=== PATIENT | female | born 1960 | race African-American/Black ===

== ENCOUNTER 2024-08-03 20:39 | Emergency (ER) | payer SELFPAY ==
--- NOTE | 2024-08-03 | ECG_ITS ---
Test Reason : WEAKNESS Blood Pressure : */* mmHG Vent. Rate : 46 BPM Atrial Rate : 46 BPM P-R Int : 192 ms QRS Dur : 172 ms QT Int : 668 ms P-R-T Axes : 48 -67 95 degrees QTcB Int : 584 ms Poor data quality Sinus bradycardia with Premature supraventricular complexes Right bundle branch block Left anterior fascicular block Bifascicular block Left ventricular hypertrophy ( R in aVL , Romhilt-Keating ) Cannot rule out Septal infarct , age undetermined Abnormal ECG No previous ECGs available Referred By: Generic ED Physician Electronically Signed By: JONNY BHATIA MD
--- NOTE | ~2024-08-03 | CT_ITS ---
CLINICAL HISTORY: fall with headstrike collar CT cervical spine without contrast Comparison: None Findings: Normal vertebral body alignment. Moderate degenerative changes of the cervical spine. No acute fractures or dislocations. Mucous retention cyst in the right sphenoid sinus. Soft tissues of the neck are normal. Left mastoid effusion. IMPRESSION: No acute findings. This document has been electronically signed by: Reggie Lopez MD on 08/04/2024 01:54:03
--- NOTE | ~2024-08-03 | CT_ITS ---
CLINICAL HISTORY: fall with headstrike CT head without contrast Comparison: None Findings: Moderate ill-defined focus of decreased attenuation identified of the left temporal lobe. No acute intracranial hemorrhage. No midline shift. No hydrocephalus. There is generalized cerebral volume loss. Small mucous retention cysts versus polyps identified at the right frontal and right sphenoid sinuses. The bilateral mastoid air cells appear clear. No acute skull fracture. Impression: 1. Moderate ill-defined focus of low attenuation present at the left temporal lobe. Differential considerations include age-indeterminate ischemia, possibly acute or subacute in etiology or edema related to an underlying mass. Recommend MRI examination of the brain with and without contrast for further evaluation. No acute intracranial hemorrhage. No midline shift. This document has been electronically signed by: Jr Colorado MD on 08/04/2024 02:13:42
--- NOTE | ~2024-08-03 | CT_ITS ---
CLINICAL HISTORY: Left temporal mass CVA CT angiography head and neck with contrast. 3D Postprocessing. Comparison: None Findings: Aortic arch and cervical great vessels are patent. Mild calcific atherosclerotic changes are seen in the carotid bulbs bilaterally without significant stenosis. Intracranial arteries are patent. No aneurysm, dissection, or occlusion. The examination demonstrates a brightly enhancing extra-axial mass in the left middle cranial fossa Passing through and expanding the foramen ovale. The mass measures 3.7 cm in cephalocaudal dimension by 2.5 cm in width and up to 2.1 cm in AP dimension. Its location suggests a likely schwannoma. The visualized thyroid gland is unremarkable. No cervical mass or fluid collection. Lung apices clear. No acute fracture. There is significant surrounding edema. IMPRESSION: 1. Brightly enhancing circumscribed extra-axial mass passes through and expands the foramen ovale likely representing a schwannoma. There is significant surrounding edema. Please correlate with MRI. 2. Patent head and neck CTA. This document has been electronically signed by: Anton Spear MD on 08/04/2024 05:48:46
[2024-08-03 20:49] VITALS: BP 111/71; PULSE 64; O2SAT 100
[2024-08-03 20:53] VITALS: BP 147/98; PULSE 58; RESP 18; O2SAT 98; BMI 27.4
--- NOTE | 2024-08-03 21:53 | PC.NURSE ---
Addendum entered by Mely Wayne RN 08/04/24 05:52: unable to obtain PO temp, rectal temp, and got an axillary temp of 87.8. placed pt on mariana hugger. Original Note: pt came in for a fall via EMS, during triage pt endorsing SI, security called to have belongings secured and searched, unable to exchange trouble shooter due to pt having C collar on and no imaging.
[2024-08-03 22:00] VITALS: BP 129/71; PULSE 53; RESP 18; O2SAT 98
[2024-08-03 22:59] LABS: MANUAL DIFF FLAG NO
[2024-08-03 23:01] LABS: Basophils Percent Auto 0.3 % (0-2); Eosinophils Percent Auto 0.3 % (0-4); Hematocrit 36.2 % (37.0-47.0); Hemoglobin 12.5 g/dl (12.0-16.0); Imm Gran Abs Auto 0.01 X10*3/uL (0.00-0.03); Imm Gran Pct Auto 0.3 % (0.0-0.4); Lymphocytes Absolute Auto 1.1 X10*3/uL (1.2-4.9); Lymphocytes Percent Auto 29.9 % (20-40); Mean Corpuscular HGB Conc 34.5 g/dl (31.0-35.0); Mean Corpuscular Hemoglobin 31.5 pg (27.0-33.0); Mean Corpuscular Volume 91.2 fL (80.0-98.0); Mean Platelet Volume 10.1 fL (9.4-12.3); Monocytes Absolute Auto 0.2 X10*3/uL (0.1-1.2); Monocytes Percent Auto 5.6 % (2-11); Neutrophils Absolute Auto 2.3 x10*3/uL (2.0-8.3); Neutrophils Percent Auto 63.6 % (45-73); Platelet Count 257 X10*3/uL (160-400); Red Blood Count 3.97 X10*6/uL (4.20-5.50); Red Cell Distribution Width 14.4 % (11.0-16.0); White Blood Count 3.5 X10*3/uL (4.8-10.8)
[2024-08-03 23:21] LABS: Troponin-I High Sensitivity 2.8 ng/L (<3.5-17.0)
[2024-08-03 23:22] LABS: Alanine Aminotransferase 53 U/L (0-31); Albumin Level 4.2 g/dL (3.5-5.0); Alkaline Phosphatase 76 U/L (39-117); Anion Gap 19 (12-20); Aspartate Amino Transferase 127 U/L (5-31); Bilirubin Total 0.3 mg/dL (0.0-1.0); Blood Urea Nitrogen 14 mg/dL (9-16); Calcium 9.6 mg/dL (8.4-10.2); Carbon Dioxide 28 mmol/L (22-29); Chloride 97 mmol/L (96-108); Creatinine Clr Calc Pharmacy 80.6; Estimated Glomerular Filt Rate > 60; Ethanol < 10 mg/dL; Glucose Fasting 234 mg/dL (60-99); Potassium 3.2 mmol/L (3.3-5.1); Sodium 141 mmol/L (135-145); Total Protein 8.5 g/dL (6.5-8.0)
[2024-08-03 23:24] LABS: Acetaminophen LAB < 3 mcg/mL (<30); Salicylate < 5.0 mg/dL (15-30)
[2024-08-03 23:35] LABS: TSH reflex Free T4 26.74 uIU/mL (0.32-4.0)
[2024-08-04] VITALS (14 sets, daily range): BP systolic 73–110; BP diastolic 45–80; PULSE 51–62; RESP 12–16; TEMP 31–34.1; O2SAT 94–100
[2024-08-04 01:27] LABS: Free T4 (Free Thyroxine) < 0.42 ng/dL (0.71-1.85)
--- NOTE | 2024-08-04 02:58 | ED_ITS ---
HPI - Fall General Chief Complaint: Fall Stated Complaint: pt is deaf, dizzy, weak, took fall? c collered Time Seen by Provider: 08/04/24 02:22 Source: EMS Mode of arrival: EMS Limitations: other (ASL) History of Present Illness ED Provider: HPI Narrative: Patient is deaf and mute apparently comes here as she slipped and fell on snow fell backwards and hitting her back to the ground denies any significant headache no nausea no vomiting no loss of consciousness patient has denied suicidal ideation or unsafe to be home says that her left upper extremity is weak which happened after the fall because of pain Related Data Allergies Allergy/AdvReac Type Severity Reaction Status Date / Time No Known Allergies Allergy Verified 08/03/24 21:41 Review of Systems 2 Review of Systems: Yes all other systems are reviewed and are negative [facility] Social History Social History Smoked in Last 30 Days: Yes Use of substances other than those prescribed or required for medical reasons: No Advance Directives: No Do you have a plan to hurt others: No Plan Physical Exam 2 Vital Signs: Vital Signs: Last Vital Signs Temp 87.8 F L 08/04/24 05:19 Pulse 51 08/04/24 05:19 Resp 12 08/04/24 05:19 BP 93/61 08/04/24 06:45 Pulse Ox 97 08/04/24 05:19 O2 Del Method Room Air 08/04/24 05:19 BMI result Body Mass Index 27.4 Appearance: Alert. . No acute distress. Patient is deaf Eyes: PERRLA, No Nystagmus ENT: Pharynx normal. Oral Mucosa moist Neck: Normal inspection. Neck supple. CVS: Normal heart rate and rhythm. Pulses normal. Respiratory: No respiratory distress. Equal air entry bilateral, no wheezing/rales/rhonchi Abdomen: Soft and nontender. Bowel sounds are present, no mass palpable, no CVA tenderness Skin: Skin warm and dry. Normal skin color. Normal skin turgor. Extremities: No lower extremity edema. No calf tenderness Neuro: Oriented X 3. Left upper extremity weakness 2/5and lower extremity normal 5/5 right side No cerebellar signs , cranial nerves II-XII intact Medications Administered Discontinued Medications Generic Name Dose Route Start Last Admin Trade Name Freq PRN Reason Stop Dose Admin Al Hydroxide/Mg Hydroxide 30 ml 08/04/24 02:58 08/04/24 03:15 Magnesium Hydrox/Alum Hydrox 30 Ml Oral.Susp PO 08/04/24 02:59 30 ml ONCE ONE Administration Iohexol 70 ml 08/04/24 04:05 08/04/24 04:05 Iohexol 350 Mg/Ml 100 Ml Infus..Btl IV 08/04/24 04:06 70 ml ONCE ONE Administration Medical Decision Making Medical Decision Making [place] Narrative: Patient is deaf came here after the fall on the ice unable to get up noted to be hypothermic 87.8 at 05:00 started on Crhis Hugger and will start on warm fluids and po fluids Patient's CT scan showed b/l enhancing exrtra axial mass passes through and expands the foramen ovale Also noted to have patient has significant hypothyroidism not in coma at this time will give her levothyroxine IV was already given Decadron IV Patient is signed out Dr. Mays for disposition [facility] called [facility] [place] Lab Attestation statement: I reviewed the patient's lab results. 08/03/24 22:52 08/03/24 22:52 Labs: Lab Results 08/03/24 08/04/24 Range/Units 22:52 06:48 WBC 3.5 L (4.8-10.8) X10*3/uL RBC 3.97 L (4.20-5.50) X10*6/uL Hgb 12.5 (12.0-16.0) g/dl Hct 36.2 L (37.0-47.0) % MCV 91.2 (80.0-98.0) fL MCH 31.5 (27.0-33.0) pg MCHC 34.5 (31.0-35.0) g/dl RDW 14.4 (11.0-16.0) % Plt Count 257 (160-400) X10*3/uL MPV 10.1 (9.4-12.3) fL Immature Gran % (Auto) 0.3 (0.0-0.4) % Neut % (Auto) 63.6 (45-73) % Lymph % (Auto) 29.9 (20-40) % Gem % (Auto) 5.6 (2-11) % Eos % (Auto) 0.3 (0-4) % Baso % (Auto) 0.3 (0-2) % Lymph # (Auto) 1.1 L (1.2-4.9) X10*3/uL Gem # (Auto) 0.2 (0.1-1.2) X10*3/uL Eos # (Auto) 0.0 (0.0-0.4) X10*3/uL Baso # (Auto) 0.0 (0.0-0.2) X10*3/uL Abs Immat Gran (auto) 0.01 (0.00-0.03) X10*3/uL Absolute Neuts (auto) 2.3 (2.0-8.3) x10*3/uL Absolute Nucleated RBC 0.000 (0.0-0.012) X10*3/uL Nucleated RBC % (auto) 0.0 (0.0-0.2) /100WBC Sodium 141 (135-145) mmol/L Potassium 3.2 L (3.3-5.1) mmol/L Chloride 97 (96-108) mmol/L Carbon Dioxide 28 (22-29) mmol/L Anion Gap 19 (12-20) BUN 14 (9-16) mg/dL Creatinine 0.78 (0.5-1.4) mg/dL Estim Creat Clear Calc 80.6 Estimated GFR > 60 Fasting Glucose 234 H (60-99) mg/dL Calcium 9.6 (8.4-10.2) mg/dL Total Bilirubin 0.3 (0.0-1.0) mg/dL AST 127 H (5-31) U/L ALT 53 H (0-31) U/L Alkaline Phosphatase 76 (39-117) U/L Troponin I High Sens 2.8 (<3.5-17.0) ng/L Total Protein 8.5 H (6.5-8.0) g/dL Albumin 4.2 (3.5-5.0) g/dL TSH 26.74 H (0.32-4.0) uIU/mL Free T4 < 0.42 L (0.71-1.85) ng/dL Urine Color Yellow Urine Appearance Hazy Urine pH 6.0 (5.0-9.0) Ur Specific [place] >= 1.030 H (1.005-1.025) Urine Protein 100 (2+) H (Neg-Trace) mg/dL Urine Glucose (UA) 100 H (Negative) mg/dL Urine Ketones Negative (Negative) mg/dL Urine Blood Small (1+) H (Negative) Urine Nitrite Negative (Negative) Ur Leukocyte Esterase Negative (Negative) Urine RBC 0-2 (0-2) /HPF Urine WBC 0-5 (0-5) /HPF Ur Squamous Epith Cells 0-2 (0-2) /HPF Urine Bacteria 4+ (None Seen) Hyaline Casts 11-20 (0-2) /LPF Granular Casts Present Salicylates < 5.0 L (15-30) mg/dL Urine Opiates Screen Not Detected (Not Detect) Ur Buprenorphine Scrn Not Detected (Not Detect) ng/mL Ur Oxycodone Screen Not Detected (Not Detect) ng/mL Urine Methadone Screen Not Detected (Not Detect) ng/mL Urine Fentanyl Screen Not Detected (Not Detect) Acetaminophen < 3 (<30) mcg/mL Ur Barbiturates Screen Not Detected (Not Detect) Ur Phencyclidine Scrn Not Detected (Not Detect) Ur Amphetamines Screen Not Detected (Not Detect) U Benzodiazepines Scrn Not Detected (Not Detect) Urine Cocaine Screen Not Detected (Not Detect) U Marijuana (THC) Screen Not Detected (Not Detect) Ethyl Alcohol < 10 mg/dL Independent Interpretation I performed an independent interpretation of an: EKG and CT Scan Interpretation: Sinus bradycardia with heart rate 46 beats per minute right bundle-branch block no acute STT wave changes no acute ischemia Radiology Impression Discussion of test interpretation with radiology: I have reviewed the radiologist's reading. Radiologist Impression: [place] [id number] CT Scan Report Signed Patient: Lulu Bragg MR#: [id number] : 1960 Acct:[id number] Age/Sex: 64 / F ADM Date: 08/03/24 Loc: HO.ED Attending Dr: Ordering Physician: Gilbert Miller MD Date of Service: 08/04/24 Procedure(s): CT angio head neck Accession Number(s): [id number] cc: Physician,Unknown ; Gilbert Miller MD~ Report Number: [id number]: Total DLP = 1463.00 mGy-cm CLINICAL HISTORY: Left temporal mass CVA CT angiography head and neck with contrast. 3D Postprocessing. Comparison: None Findings: Aortic arch and cervical great vessels are patent. Mild calcific atherosclerotic changes are seen in the carotid bulbs bilaterally without significant stenosis. Intracranial arteries are patent. No aneurysm, dissection, or occlusion. The examination demonstrates a brightly enhancing extra-axial mass in the left middle cranial fossa Passing through and expanding the foramen ovale. The mass measures 3.7 cm in cephalocaudal dimension by 2.5 cm in width and up to 2.1 cm in AP dimension. Its location suggests a likely schwannoma. The visualized thyroid gland is unremarkable. No cervical mass or fluid collection. Lung apices clear. No acute fracture. There is significant surrounding edema. IMPRESSION: 1. Brightly enhancing circumscribed extra-axial mass passes through and expands the foramen ovale likely representing a schwannoma. There is significant surrounding edema. Please correlate with MRI. 2. Patent head and neck CTA. This document has been electronically signed by: Anton Spear MD on 08/04/2024 05:48:46 Discharge Plan Discharge Clinical Impression: Intracranial mass, Hypothyroidism, Fall, Hypothermia Patient Disposition: Still a Patient Print Language: [place] Citizen Sign Language
[2024-08-04] MEDS: Magnesium Hydrox/Alum Hydrox 30 ML ORAL.SUSP PO (03:15)
[2024-08-04] MEDS: iohexoL 350 MG/ML 100 ML INFUS..BTL 70 ML IV (04:05)
--- NOTE | 2024-08-04 06:13 | PC.NURSE ---
Pt relocated to ED Bed 15. Full Psych change coordinator complete, all belongings secured in the [place]iza port. Staff was unable to obtain a rectal, oral, or temporal temperature on the patient, axillary temp noted to be hypothermic. MD Miller aware of temp, blanket warmer initiated. Pt alert, staff are waiting for an operations systems specialist to assist with obtaining additional information regarding the events leading up to today's visit and clarification regarding patient's potential SI. [place] scale and additional psych questions unable to be answered thus far.
[2024-08-04 07:00] LABS: Appearance Urine Hazy; Color Urine Yellow; Glucose Urine UA 100 mg/dL (Negative); Leukocyte Esterase Urine Negative (Negative); Nitrite Urine Negative (Negative); Specific Gravity - Urine >= 1.030 (1.005-1.025); UMIC TRIGGER UACC YES; Urine Blood Small (1+) (Negative); Urine Ketones Negative (Negative); Urine Protein 100 (2+) mg/dL (Neg-Trace)
[2024-08-04 07:08] LABS: Bacteria Urine 4+ (None Seen); Granular Casts Urine Present; RBC Urine 0-2 /HPF (0-2); Squamous Epithelial Cell Urine 0-2 /HPF (0-2); WBC Urine 0-5 /HPF (0-5)
[2024-08-04 07:11] LABS: Amphetamine Screen Urine Not Detected (Not Detect); Barbiturates, Urine Not Detected (Not Detect); Benzodiazepines Screen Urine Not Detected (Not Detect); Buprenorphine Scr Not Detected (Not Detect); Cannabinoid Screen Urine Not Detected (Not Detect); Cocaine Screen Urine Not Detected (Not Detect); Fentanyl, urine Not Detected (Not Detect); Methadone Screen, Urine Not Detected (Not Detect); Opiate Screen Urine Not Detected (Not Detect); Oxycodone Screen Urine Not Detected (Not Detect); Phencyclidine Screen Urine Not Detected (Not Detect)
--- NOTE | 2024-08-04 07:31 | PC.NURSE ---
Per Dr Nelson, no need for care team consult as patient is not SI according to ASL charge nurse is aware
[2024-08-04] MEDS: dexAMETHasone sod phosphate 10 MG/ML VIAL IVPUSH (07:44)
[2024-08-04] MEDS: Levothyroxine Sodium 100 MCG/5 ML VIAL IVPUSH ×2 (07:46→10:13)
[2024-08-04] MEDS: Potassium Chloride/H20 10 MEQ/100 ML PIGGYBACK 100 MEQ IV ×3 (08:00→10:38)
[2024-08-04] MEDS: 0.9 % Sodium Chloride 1,000 ML 999 ML IV ×2 (08:07→08:31)
[2024-08-04] MEDS: Lactated Ringers 1,000 ML 999 ML IV (09:14)
[2024-08-04] MEDS: Hydrocortisone Sod Succ/PF 100 MG VIAL IVPUSH (10:13)
[2024-08-04 10:17] LABS: Glucose, Whole Blood 118 mg/dL (60-115)
[2024-08-04] MEDS: Norepinephrine Bitartrate/D5W 8 MG/250 ML PLAST..BAG 7.65 MG IVCONT (10:18)
--- NOTE | 2024-08-04 11:21 | PC.NURSE ---
Per Dr Mays, Levophed drip is to stay at the same rate of 0.09, did not titrate in the computer. report called into [facility] and given to Wendy CANO.
== END 2024-08-04 11:20 | disposition short-term general hospital (02) ==
PROVIDERS: Emergency Medicine; Emergency Provider Internal Medicine
DX: S39.92XA Unspecified injury of lower back, initial encounter (principal); M54.2 Cervicalgia; I45.10 Unspecified right bundle-branch block; R51.9 Headache, unspecified; R00.1 Bradycardia, unspecified; I95.9 Hypotension, unspecified; R42 Dizziness and giddiness; E03.9 Hypothyroidism, unspecified; R40.2410 Glasgow coma scale score 13-15, unspecified time; W00.0XXA Fall on same level due to ice and snow, initial encounter; Y93.01 Activity, walking, marching and hiking; Y92.89 Other specified places as the place of occurrence of the external cause; Y99.8 Other external cause status; Z51.81 Encounter for therapeutic drug level monitoring; Z79.899 Other long term (current) drug therapy
CPT/HCPCS: 36415; 70450; 70496; 70498; 72125; 80053; 80143; 80179; 80307; 81001; 82550; 82947; 84439; 84443; 84484; 85025; 93005; 96365; 96366; 96367; 96375; 96376; 99285; J0651; J1100; J1720; J3480; J7120; Q9967

== ENCOUNTER → 2024-08-03 23:02 | Outpatient (BNV) | payer MEDICARE, MEDICAID, SELFPAY | PROVIDERS: Emergency Provider Internal Medicine; Visit Provider Internal Medicine Cardiovascular Disease | DX: R00.1 Bradycardia, unspecified (principal); I45.2 Bifascicular block; R94.31 Abnormal electrocardiogram [ECG] [EKG]; R53.1 Weakness | CPT/HCPCS: 93010 ==

== ENCOUNTER → 2024-08-04 01:10 | Outpatient (BNV) | payer MEDICARE, MEDICAID, SELFPAY | PROVIDERS: Visit Provider Radiology Diagnostic Radiology | DX: R42 Dizziness and giddiness (principal); M50.30 Other cervical disc degeneration, unspecified cervical region | CPT/HCPCS: 70450 ==